=== PATIENT | male | born 1945 | race Two or more races ===

== ENCOUNTER → 2024-10-12 | Emergency (ER) | payer OTHER ==
[~2024-10-12] VITALS: Ht 175.3 cm; Wt 77.1 kg
[~2024-10-12] MED LIST: COZAAR25 MG PO; ELIQUIS2.5 MG PO; LIPITOR40 M1 PO; NORVASC2.5 M1 PO
[2024-10-12 19:25] LABS: MEAN CELL VOLUME 87.5 fL (80.0-100.00); MEAN CORPUSCULAR HEMOGLOBIN 30.7 pg (27.00-32.0); PLATELET COUNT 405 K/uL (150-450); RED BLOOD COUNT 4.23 M/uL (4.00-6.00); RED CELL DISTRIBUTION WIDTH 13.8 % (11.5-14.5)
[2024-10-12 20:08] LABS: ALBUMIN 3.1 gm/dL (3.4-5.0); BILIRUBIN TOTAL 0.49 mg/dL (0.3-1.2); BILIRUBIN,CONJUGATED 0.19 mg/dL (0.0-0.2); BILIRUBIN,UNCONJUGATED 0.3 mg/dL (0.0-0.6); CALCIUM 9.6 mg/dL (8.5-10.1); CREATININE SERUM 0.82 mg/dL (0.70-1.30); GFR 90.63; GLOBULINA 5.1 G/DL (2.4-3.5); POTASSIUM 3.89 mEq/L (3.5-5.1); TOTAL PROTEIN 8.2 gm/dL (6.4-8.2)
[2024-10-12 21:10] LABS: PH,URINE 5.5 (5.0-8.0); URINE APPEARANCE Clear; URINE BILIRRUBIN Small (NEGATIVE); URINE BLOOD Negative; URINE COLOR Dark Yellow; URINE GLUCOSE Negative (NEGATIVE); URINE KETONE 15 (NEGATIVE); URINE LEUKOCYTE Negative; URINE NITRATE Negative; URINE PROTEIN 30 (NEGATIVE)
[2024-10-12 21:15] LABS: URINE BACTERIA 78.1 uL (0.0-1933); URINE EPITHELIAL CELLS 18.3 uL (0.0-38.8); URINE RBC 20.9 uL (0.0-20.8); URINE WBC 8.6 uL (0.0-23.2)
[2024-10-12 22:05] LABS: URINE CAST 0.76 uL (0.0-1.40)
== END | disposition left against medical advice (07) ==
LOC: ER 15:28
PROVIDERS: Preventive Medicine Public Health & General Preventive Medicine
DX: M79.2 Neuralgia and neuritis, unspecified (principal); M25.50 Pain in unspecified joint; I10 Essential (primary) hypertension